=== PATIENT | male | born 1965 | race Hispanic/Latino ===

== ENCOUNTER 2018-06-26 20:35 | Emergency (ER) | payer SELFPAY ==
[~2018-06-26] VITALS: Ht 180.3 cm; Wt 123.8 kg
--- OUTSIDE RECORDS SUMMARY | 2018-06-26 20:38 | XMS REPORT | Continuity of Care Document ---
Author Author [facility] Interface Address Unknown Phone Unavailable Problems Problem Status Onset Date Classification Date Reported Comments Source ACUTE PANCREATITIS Active 06/13/2013 [facility] BLOOD IN URINE/PAIN Active 09/21/2011 [facility] Acute appendicitis Resolved Problem 06/18/2013 [facility] Carcinoma of thyroid Resolved Problem 06/18/2013 [facility] ADMINISTRTVE ENCOUNT NOS Active [facility] Medications Medication Details Route Status Patient Instructions Ordering Provider Order Date Source Fluzone 0.5 ml, Route: IM, Drug Form: SUSP, Daily, Start date: 06/15/13 9:00:00, Duration: 1 doses or times, Stop date: 06/15/13 9:00:00(Same as: Fluzone Quadrivalent) Inactive 06/15/2013 [facility] Diovan 160 mg, 1 tab, Route: PO, Drug form: TAB, Daily, Dosing Weight 114.602, kg, Start date: 06/14/13 9:00:00, Duration: 30 day, Stop date: 07/13/13 9:00:00Same as Diovan No Longer Active 06/14/2013 [facility] Influenza Virus Vaccine, Inactivated K-Dtmepwjc-67 (H3N2)-like virus ([id number] [facility] [place] strain / Influenza Virus Vaccine, Inactivated Z-Gmjlones-76, IVR-148 (H1N1) strain / Influenza Virus Vaccine, Inactivated, C-Zqxdkjc-[id number]-lik 0.5 ml, Route: IM, Drug Form: SUSP, Daily, Start date: 06/14/13 9:00:00, Duration: 1 doses or times, Stop date: 06/14/13 9:00:00(Same as: Fluzone Quadrivalent) No Longer Active 06/14/2013 [facility] pneumococcal capsular polysaccharide type 1 vaccine / pneumococcal capsular polysaccharide type 10A vaccine / pneumococcal capsular polysaccharide type 11A vaccine / pneumococcal capsular polysaccharide type 12F vaccine / pneumococcal capsular polysacchar 0.5 ml, Route: IM, Drug Form: INJ, Daily, Start date: 06/14/13 9:00:00, Duration: 1 doses or times, Stop date: 06/14/13 9:00:00(Same as: Pneumovax 23) Refrigerate Inactive 06/14/2013 [facility] Thyroxine 150 microgram, 1 tab, Route: PO, Drug form: TAB, Q630AM, Dosing Weight 114.602, kg, Start date: 06/14/13 6:30:00, Duration: 30 day, Stop date: 07/13/13 6:30:00Take 1 hour before or 2 hours after meal; E nteral feeds may interefere with the absorption of this medication. (Same as: Levothroid) No Longer Active 06/14/2013 [facility] levothyroxine 150 mcg (0.15 mg) oral tablet 150 microgram=1 tab, PO, Daily, # 30 tab, 0 Refill(s) Active 06/13/2013 [facility] Diovan 200 mg, PO, Daily, 0 Refill(s) Active 06/13/2013 [facility] NS 1,000 mL 1,000 mL, Rate: 125 ml/hr, Infuse over: 8 hr, Route: IV, Dosing Weight 114.602 kg, Total Volume: 1,000, Start date: 06/13/13 18:15:00, Duration: 30 day, Stop date: 07/13/13 18:14:00 No Longer Active 06/13/2013 [facility] Ondansetron 4 mg, 2 mL, Route: IVP, Drug form: INJ, Q4H, Dosing Weight 114.602, kg, PRN Nausea & Vomiting, Start date: 06/13/13 18:14:00, Duration: 30 day, Stop date: 07/13/13 18:13:00(Same as: Zofran) No Longer Active 06/13/2013 [facility] Acetaminophen 325 MG / Hydrocodone Bitartrate 5 MG Oral Tablet 1 tab, Route: PO, Drug Form: TAB, Dosing Weight 114.602, kg, Q4H, PRN Pain Score 1-3, Start date: 06/13/13 18:14:00, Duration: 30 day, Stop date: 07/13/13 18:13:00(Same as: [place] 325/5) Do not exceed 4gm/day of acetaminophen. No Longer Active 06/13/2013 [facility] Acetaminophen 650 mg, 2 tab, Route: PO, Drug form: TAB, Q4H, Dosing Weight 114.602, kg, PRN Pain 1-3/Temp > 100.4 F, Start date: 06/13/13 18:14:00, Duration: 30 day, Stop date: 07/13/13 18:13:00Do not exceed 4 gm/day. (Same as: Tylenol) No Longer Active 06/13/2013 [facility] acetaminophen-hydrocodone 325 mg-5 mg oral tablet 1 tab, PO, Q4H, PRN, 9 tab, for pain, Substitution Allowed, Maintenance, TAB PO Active [place] 09/21/2011 [facility] Flomax 0.4 mg oral capsule 0.4 mg, 1 cap, PO, Daily, 12 cap, Substitution Allowed, CAP PO Active [place] 09/21/2011 [facility] Zofran 4 mg, Route: IVP, Drug form: INJ, ONCE, Priority: STAT, Start date: 09/21/11 14:40:00, Stop date: 09/21/11 14:40:00 IVP No Longer Active [place] 09/21/2011 [facility] morphine Sulfate 4 mg, Route: IVP, ONCE, Priority: STAT, Start date: 09/21/11 14:39:00, Stop date: 09/21/11 14:39:00 IVP No Longer Active [place] 09/21/2011 [facility] Allergies, Adverse Reactions, Alerts Substance Category Reaction Severity Reaction type Status Date Reported Comments Source codeine Assertion Drug allergy Active [facility] penicillins Assertion Drug allergy Active [facility] Immunizations Immunization Date Given Site Status Last Updated Comments Source pneumococcal 23-valent vaccine 06/15/2013 Right deltoid completed [facility] influenza virus vaccine, inactivated 06/15/2013 Left deltoid completed Dayv [facility] Results Order Name Results Value Reference Range Date Interpretation Comments Source CHEM PANEL ASPARTATE TRANSAMINASE 11 unit/L 0 - 37 06/15/2013 [facility] CHEM PANEL B/C Ratio 16 6 - 25 06/15/2013 [facility] CHEM PANEL AGAP 13.9 meq/L 10.0 - 20.0 06/15/2013 [facility] CHEM PANEL BUN 16 mg/dL 7 - 22 06/15/2013 [facility] CHEM PANEL Sodium Lvl 143 meq/L 135 - 145 06/15/2013 [facility] CHEM PANEL Creatinine Lvl 1.0 mg/dL 0.5 - 1.4 06/15/2013 [facility] CHEM PANEL ALANINE AMINOTRANSFERASE 17 unit/L 0 - 65 06/15/2013 [facility] CHEM PANEL Albumin Lvl 3.0 g/dL 3.5 - 5.0 06/15/2013 [facility] CHEM PANEL Alk Phos 77 unit/L 39 - 136 06/15/2013 [facility] CHEM PANEL Glucose Lvl 89 mg/dL 70 - 99 06/15/2013 3Interpretive Data: Adult reference range values reflect the clinical guidelines of the [place] [employer]. [facility] CHEM PANEL A/G Ratio 1.2 0.7 - 1.6 06/15/2013 [facility] CHEM PANEL Globulin 2.4 g/dL 2.0 - 4.0 06/15/2013 [facility] CHEM PANEL Potassium Lvl 3.9 meq/L 3.5 - 5.1 06/15/2013 [facility] CHEM PANEL Chloride Lvl 108 meq/L 95 - 109 06/15/2013 [facility] CHEM PANEL Calcium Lvl 7.9 mg/dL 8.5 - 10.5 06/15/2013 [facility] CHEM PANEL CO2 25 meq/L 24 - 32 06/15/2013 [facility] CHEM PANEL Total Protein 5.4 g/dL 6.4 - 8.4 06/15/2013 [facility] CHEM PANEL Bili Total 0.2 mg/dL 0.2 - 1.3 06/15/2013 [facility] CHEM PANEL eGFR 89 mL/min/1.73m2 06/15/2013 1Result Comment: The eGFR is calculated using the CKD-EPI formula. In most young, healthy individuals the eGFR will be >90 mL/min/1.73m2. The eGFR declines with age. An eGFR of 60-89 may be normal in some populations, particularly the elderly, for whom the CKD-EPI formula has not been extensively validated. Use of the eGFR is not recommended in the following populations: Individuals with unstable creatinine concentrations, including patients and those with serious co-morbid conditions. Patients with extremes in muscle mass or diet. The data above are obtained from the National Kidney Disease Education Program (NKDEP) which additionally recommends that when the eGFR is used in patients with extremes of body mass index for purposes of drug dosing, the eGFR should be multiplied by the estimated BMI. [facility] HEMATOLOGY RDW 13.3 % 11.5 - 14.5 06/15/2013 [facility] HEMATOLOGY Platelet 197 K/CMM 133 - 450 06/15/2013 [facility] HEMATOLOGY MPV 8.5 fL 7.4 - 10.4 06/15/2013 [facility] HEMATOLOGY MCHC 34.9 g/dL 32.0 - 36.0 06/15/2013 [facility] HEMATOLOGY MCV 89.0 fL 80.0 - 94.0 06/15/2013 [facility] HEMATOLOGY Hct 37.8 % 42.0 - 54.0 06/15/2013 [facility] HEMATOLOGY Hgb 13.2 g/dL 14.0 - 18.0 06/15/2013 [facility] HEMATOLOGY MCH 31.1 pg 27.0 - 31.0 06/15/2013 [facility] HEMATOLOGY RBC X 10x6 4.25 M/CMM 4.70 - 6.10 06/15/2013 [facility] HEMATOLOGY WBC X 10x3 7.3 K/CMM 3.7 - 10.4 06/15/2013 [facility] IMMUNOLOGY [place] HIV 4th GEN Negative (06/15/2013 03:38:00 [place]) Negative 06/15/2013 [facility] IMMUNOLOGY [place]-Hep C Ab Negative *NA* (06/15/2013 03:38:00 [place]) Negative 06/15/2013 [facility] LIPIDS Trig 140 mg/dL <=149 mg/dL 06/15/2013 [facility] CHEM PANEL Lipase Lvl 420 unit/L 73 - 393 06/14/2013 [facility] CHEM PANEL Amylase Lvl 52 unit/L 25 - 115 06/14/2013 [facility] CHEM PANEL eGFR 89 mL/min/1.73m2 06/14/2013 2Result Comment: The eGFR is calculated using the CKD-EPI formula. In most young, healthy individuals the eGFR will be >90 mL/min/1.73m2. The eGFR declines with age. An eGFR of 60-89 may be normal in some populations, particularly the elderly, for whom the CKD-EPI formula has not been extensively validated. Use of the eGFR is not recommended in the following populations: Individuals with unstable creatinine concentrations, including patients and those with serious co-morbid conditions. Patients with extremes in muscle mass or diet. The data above are obtained from the National Kidney Disease Education Program (NKDEP) which additionally recommends that when the eGFR is used in patients with extremes of body mass index for purposes of drug dosing, the eGFR should be multiplied by the estimated BMI. [facility] CHEM PANEL Calcium Lvl 8.1 mg/dL 8.5 - 10.5 06/14/2013 [facility] CHEM PANEL CO2 25 meq/L 24 - 32 06/14/2013 [facility] CHEM PANEL ASPARTATE TRANSAMINASE 15 unit/L 0 - 37 06/14/2013 [facility] CHEM PANEL Total Protein 6.0 g/dL 6.4 - 8.4 06/14/2013 [facility] CHEM PANEL Bili Total 0.4 mg/dL 0.2 - 1.3 06/14/2013 [facility] CHEM PANEL Potassium Lvl 4.0 meq/L 3.5 - 5.1 06/14/2013 [facility] CHEM PANEL Chloride Lvl 107 meq/L 95 - 109 06/14/2013 [facility] CHEM PANEL Sodium Lvl 140 meq/L 135 - 145 06/14/2013 [facility] CHEM PANEL Creatinine Lvl 1.0 mg/dL 0.5 - 1.4 06/14/2013 [facility] CHEM PANEL BUN 18 mg/dL 7 - 22 06/14/2013 [facility] CHEM PANEL ALANINE AMINOTRANSFERASE 17 unit/L 0 - 65 06/14/2013 [facility] CHEM PANEL Albumin Lvl 3.4 g/dL 3.5 - 5.0 06/14/2013 [facility] CHEM PANEL Alk Phos 76 unit/L 39 - 136 06/14/2013 [facility] CHEM PANEL Glucose Lvl 104 mg/dL 70 - 99 06/14/2013 4Interpretive Data: Adult reference range values reflect the clinical guidelines of the [place] [employer]. [facility] CHEM PANEL A/G Ratio 1.3 0.7 - 1.6 06/14/2013 [facility] CHEM PANEL B/C Ratio 18 6 - 25 06/14/2013 [facility] CHEM PANEL AGAP 12.0 meq/L 10.0 - 20.0 06/14/2013 [facility] CHEM PANEL Globulin 2.6 g/dL 2.0 - 4.0 06/14/2013 [facility] HEMATOLOGY WBC X 10x3 9.7 K/CMM 3.7 - 10.4 06/14/2013 [facility] HEMATOLOGY MPV 8.4 fL 7.4 - 10.4 06/14/2013 [facility] HEMATOLOGY RDW 13.0 % 11.5 - 14.5 06/14/2013 [facility] HEMATOLOGY Platelet 216 K/CMM 133 - 450 06/14/2013 [facility] HEMATOLOGY MCV 88.8 fL 80.0 - 94.0 06/14/2013 [facility] HEMATOLOGY Hct 38.4 % 42.0 - 54.0 06/14/2013 [facility] HEMATOLOGY MCHC 34.5 g/dL 32.0 - 36.0 06/14/2013 [facility] HEMATOLOGY MCH 30.7 pg 27.0 - 31.0 06/14/2013 [facility] HEMATOLOGY RBC X 10x6 4.33 M/CMM 4.70 - 6.10 06/14/2013 [facility] HEMATOLOGY Hgb 13.3 g/dL 14.0 - 18.0 06/14/2013 [facility] HEMATOLOGY Lymphocytes 11.2 % 20.0 - 40.0 06/14/2013 [facility] HEMATOLOGY Basophils 0.2 % 0.0 - 1.0 06/14/2013 [facility] HEMATOLOGY Monocytes 4.5 % 2.0 - 12.0 06/14/2013 [facility] HEMATOLOGY Eosinophils 0.1 % 0.0 - 4.0 06/14/2013 [facility] HEMATOLOGY Segs 84.0 % 45.0 - 75.0 06/14/2013 [facility] HEMATOLOGY Lymphocytes # 1.1 K/CMM 1.0 - 5.5 06/14/2013 [facility] HEMATOLOGY Segs-Bands # 8.2 K/CMM 1.5 - 8.1 06/14/2013 [facility] HEMATOLOGY Monocytes # 0.4 K/CMM 0.0 - 0.8 06/14/2013 [facility] CHEMISTRY Lipase Lvl 203 U/L 73 - 393 09/21/2011 Normal [facility] CHEMISTRY Albumin Lvl 3.8 g/dL 3.5 - 5.0 09/21/2011 Normal [facility] CHEMISTRY Chloride Lvl 107 meq/L 95 - 109 09/21/2011 Normal [facility] CHEMISTRY Potassium Lvl 4.2 meq/L 3.5 - 5.1 09/21/2011 Normal [facility] CHEMISTRY BUN 17 mg/dL 7 - 22 09/21/2011 Normal [facility] CHEMISTRY Glucose Lvl 117 mg/dL 70 - 99 09/21/2011 [place] 1Interpretive Data: Adult reference range values reflect the clinical guidelinesof the [place] [employer]. [facility] CHEMISTRY Sodium Lvl 141 meq/L 135 - 145 09/21/2011 Normal [facility] CHEMISTRY Creatinine Lvl 1.4 mg/dL 0.5 - 1.4 09/21/2011 Normal [facility] CHEMISTRY CO2 25 meq/L 24 - 32 09/21/2011 Normal [facility] CHEMISTRY Calcium Lvl 9.0 mg/dL 8.5 - 10.5 09/21/2011 Normal [facility] CHEMISTRY Alk Phos 82 U/L 39 - 136 09/21/2011 Normal [facility] CHEMISTRY Bili Total 0.3 mg/dL 0.2 - 1.3 09/21/2011 Normal [facility] CHEMISTRY AST 15 U/L 0 - 37 09/21/2011 Normal [facility] CHEMISTRY Total Protein 7.3 g/dL 6.4 - 8.4 09/21/2011 Normal [facility] CHEMISTRY ALT 26 U/L 0 - 65 09/21/2011 Normal [facility] CHEMISTRY B/C Ratio 12 6 - 25 09/21/2011 Normal [facility] CHEMISTRY AGAP 13.2 meq/L 10.0 - 20.0 09/21/2011 Normal [facility] CHEMISTRY A/G Ratio 1.1 0.7 - 1.6 09/21/2011 Normal [facility] CHEMISTRY Globulin 3.5 g/dL 2.0 - 4.0 09/21/2011 Normal [facility] HEMATOLOGY MPV 8.0 fL 7.4 - 10.4 09/21/2011 Normal [facility] HEMATOLOGY Platelet 260 K/CMM 133 - 450 09/21/2011 Normal [facility] HEMATOLOGY Hgb 15.2 g/dL 14.0 - 18.0 09/21/2011 Normal [facility] HEMATOLOGY MCHC 34.4 g/dL 32.0 - 36.0 09/21/2011 Normal [facility] HEMATOLOGY Hct 44.2 % 42.0 - 54.0 09/21/2011 Normal [facility] HEMATOLOGY MCV 89.7 fL 80.0 - 94.0 09/21/2011 Normal [facility] HEMATOLOGY WBC 9.8 K/CMM 3.7 - 10.4 09/21/2011 Normal [facility] HEMATOLOGY RBC 4.93 M/CMM 4.70 - 6.10 09/21/2011 Normal [facility] HEMATOLOGY MCH 30.8 pg 27.0 - 31.0 09/21/2011 Normal [facility] HEMATOLOGY RDW 13.3 % 11.5 - 14.5 09/21/2011 Normal [facility] HEMATOLOGY Monocytes 6.4 % 2.0 - 12.0 09/21/2011 Normal [facility] HEMATOLOGY Eosinophils 1.1 % 0.0 - 4.0 09/21/2011 Normal [facility] Monocytes # 0.6 K/CMM 0.0 - 0.8 09/21/2011 Normal [facility] HEMATOLOGY Lymphocytes # 2.1 K/CMM 1.0 - 5.5 09/21/2011 Normal [facility] HEMATOLOGY Eosinophils # 0.1 K/CMM 0.0 - 0.5 09/21/2011 Normal [facility] HEMATOLOGY Segs-Bands # 6.9 K/CMM 1.5 - 8.1 09/21/2011 Normal [facility] HEMATOLOGY Basophils 0.5 % 0.0 - 1.0 09/21/2011 Normal [facility] Basophils # 0.0 K/CMM 0.0 - 0.2 09/21/2011 Normal [facility] HEMATOLOGY Lymphocytes 21.7 % 20.0 - 40.0 09/21/2011 Normal [facility] HEMATOLOGY Segs 70.3 % 45.0 - 75.0 09/21/2011 Normal [facility] URINALYSIS UA Color Ltyellow 09/21/2011 NA [facility] URINALYSIS UA Urobilinogen <=1.0 mg/dL
*NA*
(09/21/2011 14:15:00) <sup> </sup> 0.1 - 1.0 09/21/2011 NA [facility] URINALYSIS UA Blood Large *ABN* (09/21/2011 14:15:00) Negative 09/21/2011 ABN [facility] URINALYSIS UA Nitrite Negative (09/21/2011 14:15:00) Negative 09/21/2011 [facility] URINALYSIS UA Ketones Negative mg/dL *NA* (09/21/2011 14:15:00) Negative 09/21/2011 [facility] URINALYSIS UA Bili Negative *NA* (09/21/2011 14:15:00) Negative 09/21/2011 [facility] URINALYSIS UA Mucus Few /LPF *NA* (09/21/2011 14:15:00) None Seen 09/21/2011 NA [facility] URINALYSIS UA pH 5.0 5.0 - 8.0 09/21/2011 Normal [facility] URINALYSIS UA Protein 30 mg/dL *ABN* (09/21/2011 14:15:00) Negative 09/21/2011 ABN [facility] URINALYSIS UA Turbidity Marked *ABN* (09/21/2011 14:15:00) Clear 09/21/2011 ABN [facility] URINALYSIS UA Spec Grav 1.025 <=1.030 09/21/2011 Normal [facility] URINALYSIS UA Glucose Negative mg/dL *NA* (09/21/2011 14:15:00) Negative 09/21/2011 NA [facility] URINALYSIS UA WBC 2 /HPF 0 - 5 09/21/2011 Normal [facility] URINALYSIS UA RBC null 0 - 2 09/21/2011 [place] [facility] URINALYSIS UA Bacteria Occasional /HPF *NA* (09/21/2011 14:15:00) None Seen 09/21/2011 NA [facility] URINALYSIS UA Leuk Est Negative (09/21/2011 14:15:00) Negative 09/21/2011 Normal [facility] URINALYSIS UA Sq Epi Occasional /LPF *NA* (09/21/2011 14:15:00) Few 09/21/2011 NA [facility] Vital Signs Vital Sign Value Date Comments Source Systolic (mm Hg) 127 06/15/2013 [facility] Respitory Rate 18 06/15/2013 [facility] Diastolic (mm Hg) 68 06/15/2013 [facility] Temperature Oral (F) 98.2 F 06/15/2013 [facility] Heart Rate 66 06/15/2013 [facility] Temperature Oral (F) 98.5 F 06/15/2013 [facility] Heart Rate 58 06/15/2013 [facility] Respitory Rate 20 06/15/2013 [facility] Systolic (mm Hg) 119 06/15/2013 [facility] Diastolic (mm Hg) 62 06/15/2013 [facility] Systolic (mm Hg) 127 06/15/2013 [facility] Diastolic (mm Hg) 66 06/15/2013 [facility] Respitory Rate 20 06/15/2013 [facility] Temperature Oral (F) 98.5 F 06/15/2013 [facility] Heart Rate 68 06/15/2013 [facility] Weight 114.602 06/13/2013 [facility] BMI Calculated 35.24 06/13/2013 [facility] Height 180.34 cm 06/13/2013 [facility] Height 180.34 cm 09/21/2011 [facility] Weight 122.727 09/21/2011 [facility] Encounters Location Location Details Encounter Type Encounter Number Reason For Visit Attending Provider ADM Date DC Date Status Source [facility] Emergency [id number] MAURILIO RODRIGUEZ 09/21/2011 09/22/2011 Active [facility] Inpatient [id number] Yahir De Luna 06/13/2013 06/15/2013 [facility] Procedures Procedure Code Date Perfomer Comments Source Radiation therapy care [id number] [facility] Removal of thyroid adenoma [id number] [facility]
--- OUTSIDE RECORDS SUMMARY | 2018-06-26 20:38 | XMS REPORT | Summary of Care ---
Author Organization Unknown Address Unknown Phone Unavailable Encounter Dates Location Diagnoses Discharge Providers Disposition 06/13/2013 [facility] Mami P[place] [address] Mami Paniagua 06/15/[address] Yahir De Luna Reason for Visit ACUTE PANCREATITIS Vital Signs 1 2 3 Most recent to oldest [Reference Range]: 180.34 cm (06/13/2013 17:46:00 Niya/[facility]) Height 98.2 DegF (06/15/2013 08:27:00 [facility]) 98.5 DegF (06/15/2013 03:34:00 [facility]) 98.5 DegF (06/14/2013 20:59:00 [facility]) Temperature Oral [96.4-99.1 DegF] 127 mmHg (06/15/2013 08:27:00 [facility]) 119 mmHg (06/15/2013 03:34:00 [facility]) 127 mmHg (06/14/2013 20:59:00 [facility]) Systolic Blood Pressure [90-140 mmHg] 68 mmHg (06/15/2013 08:27:00 [facility]) 62 mmHg (06/15/2013 03:34:00 [facility]) 66 mmHg (06/14/2013 20:59:00 [facility]) Diastolic Blood Pressure [60-90 mmHg] 18 BRMIN (06/15/2013 08:27:00 [facility]ya/[facility]urt) 20 BRMIN (06/15/2013 03:34:00 Niya/[facility]urt) 20 BRMIN (06/14/2013 20:59:00 [facility]) Respiratory Rate [14-20 BRMIN] 66 bpm (06/15/2013 08:27:00 [facility]) 58 bpm *LOW* (06/15/2013 03:34:00 [facility]) 68 bpm (06/14/2013 20:59:00 [facility]) Peripheral Pulse Rate [60-100 bpm] 114.602 kg (06/13/2013 17:46:00 [facility]) Weight 35.24 m2 (06/13/2013 17:46:00 [facility]) Body Mass Index Problem List Condition Effective Dates Status Health Status Informant Acute Resolved appendicitis(Confirm ed) Carcinoma of Resolved thyroid(Confirmed) Allergies, Adverse Reactions, Alerts Status Substance Reaction Severity Active codeine Active penicillins Medications Medication Instructions Start Date Stop Date Status acetaminophen 650 mg, 2 tab, Route: PO, Drug 06/13/2013 06/15/2013 Discontinued form: TAB, Q4H, Dosing Weight 114.602, kg, PRN Pain 1-3/Temp > 100.4 F, Start date: 06/13/13 18:14:00, Duration: 30 day, Stop date: 07/13/13 18:13:00 Do not exceed 4 gm/day. (Same as: Tylenol) acetaminophen-hydroc 1 tab, Route: PO, Drug Form: TAB, 06/13/2013 06/15/2013 Discontinued odone 325 mg-5 mg Dosing Weight 114.602, kg, Q4H, PRN oral tablet Pain Score 1-3, Start date: 06/13/13 18:14:00, Duration: 30 day, Stop date: 07/13/13 18:13:00 (Same as: [place] 325/5) Do not exceed 4gm/day of acetaminophen. Diovan 160 mg, 1 tab, Route: PO, Drug 06/14/2013 06/15/2013 Discontinued form: TAB, Daily, Dosing Weight 114.602, kg, Start date: 06/14/13 9:00:00, Duration: 30 day, Stop date: 07/13/13 9:00:00 Same as Diovan Diovan 200 mg, PO, Daily, 0 Refill(s) 06/13/2013 Ordered Diovan 40 mg, 1 tab, Route: PO, Drug form: 06/14/2013 06/15/2013 Discontinued TAB, Daily, Start date: 06/14/13 9:00:00, Duration: 30 day, Stop date: 07/13/13 9:00:00 Same as Diovan Fluzone 0.5 ml, Route: IM, Drug Form: SUSP, 06/15/2013 06/15/2013 Completed Daily, Start date: 06/15/13 9:00:00, Duration: 1 doses or times, Stop date: 06/15/13 9:00:00 (Same as: Fluzone Quadrivalent) influenza virus 0.5 ml, Route: IM, Drug Form: SUSP, 06/14/2013 06/15/2013 Deleted vaccine, inactivated Daily, Start date: 06/14/13 9:00:00, Duration: 1 doses or times, Stop date: 06/14/13 9:00:00 (Same as: Fluzone Quadrivalent) levothyroxine 150 microgram, 1 tab, Route: PO, 06/14/2013 06/15/2013 Discontinued Drug form: TAB, Q630AM, Dosing Weight 114.602, kg, Start date: 06/14/13 6:30:00, Duration: 30 day, Stop date: 07/13/13 6:30:00 Take 1 hour before or 2 hours after meal; Enteral feeds may interefere with the absorption of this medication. (Same as: Levothroid) levothyroxine 150 150 microgram=1 tab, PO, Daily, # 06/13/2013 Ordered mcg (0.15 mg) oral 30 tab, 0 Refill(s) tablet NS 1,000 mL 1,000 mL, Rate: 125 ml/hr, Infuse 06/13/2013 06/15/2013 Discontinued over: 8 hr, Route: IV, Dosing Weight 114.602 kg, Total Volume: 1,000, Start date: 06/13/13 18:15:00, Duration: 30 day, Stop date: 07/13/13 18:14:00 ondansetron 4 mg, 2 mL, Route: IVP, Drug form: 06/13/2013 06/15/2013 Discontinued INJ, Q4H, Dosing Weight 114.602, kg, PRN Nausea & Vomiting, Start date: 06/13/13 18:14:00, Duration: 30 day, Stop date: 07/13/13 18:13:00 (Same as: Zofran) pneumococcal 0.5 ml, Route: IM, Drug Form: INJ, 06/14/2013 06/14/2013 Completed 23-valent vaccine Daily, Start date: 06/14/13 9:00:00, Duration: 1 doses or times, Stop date: 06/14/13 9:00:00 (Same as: Pneumovax 23) Refrigerate Results ELECTROLYTES Most recent to 1 2 oldest [Reference Range]: Sodium Lvl [135-145 143 mEq/L 140 mEq/L mEq/L] (06/15/2013 03:38:00 [facility]) (06/14/2013 04:41:00 [facility]) Potassium Lvl 3.9 mEq/L 4.0 mEq/L [3.5-5.1 mEq/L] (06/15/2013 03:38:00 [facility]/Burt) (06/14/2013 04:41:00 [facility]) Chloride Lvl [95-109 108 mEq/L 107 mEq/L mEq/L] (06/15/2013 03:38:00 [facility]) (06/14/2013 04:41:00 [facility]) CO2 [24-32 mEq/L] 25 mEq/L 25 mEq/L (06/15/2013 03:38:00 [facility]) (06/14/2013 04:41:00 [facility]) AGAP [10.0-20.0 13.9 mEq/L 12.0 mEq/L mEq/L] (06/15/2013 03:38:00 Niya/[facility]urt) (06/14/2013 04:41:00 [facility]) CHEM PANEL Most recent to 1 2 oldest [Reference Range]: Creatinine Lvl 1.0 mg/dL 1.0 mg/dL [0.5-1.4 mg/dL] (06/15/2013 03:38:00 [facility]ya/[facility]) (06/14/2013 04:41:00 [facility]) eGFR 89 mL/min/1.73m2 1 89 mL/min/1.73m2 2 *NA* *NA* (06/15/2013 03:38:00 [facility]) [facility] BUN [7-22 mg/dL] 16 mg/dL 18 mg/dL (06/15/2013 03:38:00 Niya/Burt) (06/14/2013 04:41:00 [facility]) B/C Ratio [6-25] 16 18 (06/15/2013 03:38:00 [facility]ya/Burt) (06/14/2013 04:41:00 [facility]) Glucose Lvl [70-99 89 mg/dL 3 104 mg/dL 4 mg/dL] (06/15/2013 03:38:00 [facility]) *HI* (06/14/2013 04:41:00 [facility]) Total Protein 5.4 g/dL 6.0 g/dL [6.4-8.4 g/dL] *LOW* *LOW* (06/15/2013 03:38:00 [facility]ya/[facility]urt) (06/14/2013 04:41:00 [facility]) Albumin Lvl [3.5-5.0 3.0 g/dL 3.4 g/dL g/dL] *LOW* *LOW* (06/15/2013 03:38:00 Niya/Burt) (06/14/2013 04:41:00 [facility]) Globulin [2.0-4.0 2.4 g/dL 2.6 g/dL g/dL] (06/15/2013 03:38:00 Niya/Burt) (06/14/2013 04:41:00 [facility]) A/G Ratio [0.7-1.6] 1.2 1.3 (06/15/2013 03:38:00 Niya/Burt) (06/14/2013 04:41:00 [facility]) Calcium Lvl 7.9 mg/dL 8.1 mg/dL [8.5-10.5 mg/dL] *LOW* *LOW* (06/15/2013 [facility]:38:[facility] (06/14/2013 04:41:00 [facility]) ALT [0-65 unit/L] 17 unit/L 17 unit/L (06/15/2013 03:38:00 [facility]urt) (06/14/2013 04:41:00 [facility]ya/[facility]) AST [0-37 unit/L] 11 unit/L 15 unit/L (06/15/2013 03:38:00 Niya/Burt) (06/14/2013 04:41:00 [facility]) Alk Phos [39-136 77 unit/L 76 unit/L unit/L] (06/15/2013 03:38:00 [facility]ya/Burt) (06/14/2013 [facility] Bili Total [0.2-1.3 0.2 mg/dL 0.4 mg/dL mg/dL] (06/15/2013 03:38:00 [facility]) (06/14/2013 04:41:00 [facility]) Amylase Lvl [25-115 52 unit/L unit/L] (06/14/2013 04:41:00 [facility]) Lipase Lvl [73-393 420 unit/L unit/L] *HI* (06/14/2013 04:41:00 [facility]) 1Result Comment: The eGFR is calculated using [...] from the National Kidney Disease Education Program ( NKDEP) which additionally recommends that when the eGFR is used in patients with extremes of body mass index for purposes of drug dosing, the eGFR should be mul tiplied by the estimated BMI. 2Result Comment: The eGFR is calculated using [...] from the National Kidney Disease Education Program ( NKDEP) which additionally recommends that when the eGFR is used in patients with extremes of body mass index for purposes of drug dosing, the eGFR should be mul tiplied by the estimated BMI. 3Interpretive Data: Adult reference range values reflect the clinical guidelines of the [place] [employer]. 4Interpretive Data: Adult reference range values reflect the clinical guidelines of the [place] [employer]. LIPIDS Most recent to 1 2 oldest [Reference Range]: Trig [<=149 mg/dL] 140 mg/dL (06/15/2013 03:38:00 [facility]) IMMUNOLOGY Most recent to 1 2 oldest [Reference Range]: [facility] HIV 4th GEN Negative [Negative] (06/15/2013 03:38:00 [facility]) [facility]-Hep C Ab Negative [Negative] *NA* (06/15/2013 03:38:00 [facility]) HEMATOLOGY Most recent to 1 2 oldest [Reference Range]: WBC [3.7-10.4 K/CMM] 7.3 K/CMM 9.7 K/CMM (06/15/2013 03:38:00 [facility]) (06/14/2013 04:41:00 [facility]) RBC [4.70-6.10 4.25 M/CMM 4.33 M/CMM M/CMM] *LOW* *LOW* (06/15/2013 03:38:00 [facility]) (06/14/2013 04:41:00 [facility]) Hgb [14.0-18.0 g/dL] 13.2 g/dL 13.3 g/dL *LOW* *LOW* (06/15/2013 03:38:00 [facility]urt) (06/14/2013 04:41:00 [facility]) Hct [42.0-54.0 %] 37.8 % 38.4 % *LOW* *LOW* (06/15/2013 03:38:00 [facility]) ([facility]/14/2013 [facility] MCV [80.0-94.0 fL] 89.0 fL 88.8 fL (06/15/2013 03:38:00 [facility]) (06/14/2013 04:41:00 [facility]) MCH [27.0-31.0 pg] 31.1 pg 30.7 pg *HI* (06/14/2013 04:41:00 Niya/Burt) (06/15/2013 03:38:00 [facility]) MCHC [32.0-36.0 34.9 g/dL 34.5 g/dL g/dL] (06/15/2013 03:38:00 Niya/Burt) (06/14/2013 04:41:00 [facility]) RDW [11.5-14.5 %] 13.3 % 13.0 % (06/15/2013 03:38:00 [facility]) (06/14/2013 04:41:00 [facility]) Platelet [133-450 197 K/CMM 216 K/CMM K/CMM] (06/15/2013 03:38:00 [facility]) ([facility]/14/2013 [facility] MPV [7.4-10.4 fL] 8.5 fL 8.4 fL (06/15/2013 03:38:00 [facility]) (06/14/2013 [facility]41[facility] Segs [45.0-75.0 %] 84.0 % *HI* (06/14/2013 04:41:00 [facility]) Lymphocytes 11.2 % [20.0-40.0 %] *LOW* (06/14/2013 [facility]:41[facility] Monocytes [2.0-12.0 4.5 % %] (06/14/2013 04:41:00 [facility]) Eosinophils [0.0-4.0 0.1 % %] (06/14/2013 04:41:00 [facility]) Basophils [0.0-1.0 0.2 % %] (06/14/2013 04:41:00 [facility]ya/[facility]) Segs-Bands # 8.2 K/CMM [1.5-8.1 K/CMM] *HI* (06/14/2013 [facility]:41[facility] Lymphocytes # 1.1 K/CMM [1.0-5.5 K/CMM] (06/14/2013 04:41:00 [facility]) Monocytes # [0.0-0.8 0.4 K/CMM K/CMM] (06/14/2013 04:41:00 [facility]) Medications Administered During Your Visit No data available for this section Immunizations Vaccine Date Refusal Reason influenza virus vaccine, inactivated 06/15/2013 pneumococcal 23-valent vaccine 06/15/2013 Procedures Procedure Type Body Site Date of Procedure Related Diagnosis Radiation therapy care Removal of thyroid adenoma Social History Social History Type Response Smoking Status Use: Never smoker. Previous treatment: None. Tobacco smoke exposure: None. Did the Patient Smoke Cigarettes Anytime During the Last 365 Days? No. Cessation Counseling Provided? No. Assessment and Plan Extracted from: Title: Progress Note * Author: Michael Prakash Date: 06/14/2013 Impression and Plan ---Acute pancreatitis,mild: CT abdomen/pelvis unremarkable per OSH;LFT normal;tolerating diet without any abdominal pain and lipase trended down;will advance diet and check trig ---Gastroenteritis, possible viral etiology:resolved --- Hypothyroid, history of thyroidectomy for cancer in remote past: on levothyroxine --- Hypertension, essential, benign: BP stable; on Diovan ---Obesity : encourage [employer] diet DVT proph: ambulation Disposition: once tolerates full diet;likely telma CARRERA is primary; please call [phone] with questions.
--- OUTSIDE RECORDS SUMMARY | 2018-06-26 20:38 | XMS REPORT | CCD ---
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 Name Role Phone Mike Gillis CP Allergies, Adverse Reactions, Alerts Substance Reaction Status codeine Active penicillins Active Medications Medication Instructions Start Date End Date Status Flomax 0.4 mg oral 0.4 mg, 1 cap, PO, Daily, 12 cap, 09/21/2011 Ordered capsule Substitution Allowed, CAP Zofran 4 mg, Route: IVP, Drug form: INJ, 09/21/2011 09/21/2011 Completed ONCE, Priority: STAT, Start date: 09/21/11 14:40:00, Stop date: 09/21/11 14:40:00 morphine Sulfate 4 mg, Route: IVP, ONCE, Priority: 09/21/2011 09/21/2011 Completed STAT, Start date: 09/21/11 14:39:00, Stop date: 09/21/11 14:39:00 acetaminophen-hydroc 1 tab, PO, Q4H, PRN, 9 tab, for 09/21/2011 Ordered odone 325 mg-5 mg pain, Substitution Allowed, oral tablet Maintenance, TAB Vital Signs Most recent to oldest [Reference Range]: 1 Height 180.34 cm (09/21/2011 14:09:00) Weight 122.727 kg (09/21/2011 14:09:00) Results URINALYSIS Most recent to oldest [Reference Range]: 1 UA Turbidity [Clear] Marked *ABN* (09/21/2011 14:15:00) UA Color Ltyellow *NA* (09/21/2011 14:15:00) UA pH [5.0-8.0] 5.0 (09/21/2011 14:15:00) UA Spec Grav [<=1.030] 1.025 (09/21/2011 14:15:00) UA Glucose [Negative mg/dL] Negative mg/dL *NA* (09/21/2011 14:15:00) UA Blood [Negative] Large *ABN* (09/21/2011 14:15:00) UA Ketones [Negative mg/dL] Negative mg/dL *NA* (09/21/2011 14:15:00) UA Protein [Negative mg/dL] 30 mg/dL *ABN* (09/21/2011 14:15:00) UA Urobilinogen [0.1-1.0 mg/dL] <=1.0 mg/dL *NA* (09/21/2011 14:15:00) UA Bili [Negative] Negative *NA* (09/21/2011 14:15:00) UA Leuk Est [Negative] Negative (09/21/2011 14:15:00) UA Nitrite [Negative] Negative (09/21/2011 14:15:00) UA WBC [0-5 /HPF] 2 /HPF (09/21/2011 14:15:00) UA RBC [0-2 /HPF] >182 /HPF *HI* (09/21/2011 14:15:00) UA Bacteria [None Seen /HPF] Occasional /HPF *NA* (09/21/2011 14:15:00) UA Sq Epi [Few /LPF] Occasional /LPF *NA* (09/21/2011 14:15:00) UA Mucus [None Seen /LPF] Few /LPF *NA* (09/21/2011 14:15:00) CHEMISTRY Most recent to oldest [Reference Range]: 1 Sodium Lvl [135-145 mEq/L] 141 mEq/L (09/21/2011 14:30:00) Potassium Lvl [3.5-5.1 mEq/L] 4.2 mEq/L (09/21/2011 14:30:00) Chloride Lvl [95-109 mEq/L] 107 mEq/L (09/21/2011 14:30:00) CO2 [24-32 mEq/L] 25 mEq/L (09/21/2011 14:30:00) AGAP [10.0-20.0 mEq/L] 13.2 mEq/L (09/21/2011 14:30:00) Creatinine Lvl [0.5-1.4 mg/dL] 1.4 mg/dL (09/21/2011 14:30:00) BUN [7-22 mg/dL] 17 mg/dL (09/21/2011 14:30:00) B/C Ratio [6-25] 12 (09/21/2011 14:30:00) Glucose Lvl [70-99 mg/dL] 117 mg/dL 1 *HI* (09/21/2011 14:30:00) Total Protein [6.4-8.4 g/dL] 7.3 g/dL (09/21/2011 14:30:00) Albumin Lvl [3.5-5.0 g/dL] 3.8 g/dL (09/21/2011 14:30:00) Globulin [2.0-4.0 g/dL] 3.5 g/dL (09/21/2011 14:30:00) A/G Ratio [0.7-1.6] 1.1 (09/21/2011 14:30:00) Calcium Lvl [8.5-10.5 mg/dL] 9.0 mg/dL (09/21/2011 14:30:00) ALT [0-65 U/L] 26 U/L (09/21/2011 14:30:00) AST [0-37 U/L] 15 U/L (09/21/2011 14:30:00) Alk Phos [39-136 U/L] 82 U/L (09/21/2011 14:30:00) Bili Total [0.2-1.3 mg/dL] 0.3 mg/dL (09/21/2011 14:30:00) Lipase Lvl [73-393 U/L] 203 U/L (09/21/2011 14:30:00) 1Interpretive Data: Adult reference range values reflect the clinical guidelinesof the [place] [employer]. HEMATOLOGY Most recent to oldest [Reference Range]: 1 WBC [3.7-10.4 K/CMM] 9.8 K/CMM (09/21/2011 14:30:00) RBC [4.70-6.10 M/CMM] 4.93 M/CMM (09/21/2011 14:30:00) Hgb [14.0-18.0 g/dL] 15.2 g/dL (09/21/2011 14:30:00) Hct [42.0-54.0 %] 44.2 % (09/21/2011 14:30:00) MCV [80.0-94.0 fL] 89.7 fL (09/21/2011 14:30:00) MCH [27.0-31.0 pg] 30.8 pg (09/21/2011 14:30:00) MCHC [32.0-36.0 g/dL] 34.4 g/dL (09/21/2011 14:30:00) RDW [11.5-14.5 %] 13.3 % (09/21/2011 14:30:00) Platelet [133-450 K/CMM] 260 K/CMM (09/21/2011 14:30:00) MPV [7.4-10.4 fL] 8.0 fL (09/21/2011 14:30:00) Segs [45.0-75.0 %] 70.3 % (09/21/2011 14:30:00) Lymphocytes [20.0-40.0 %] 21.7 % (09/21/2011 14:30:00) Monocytes [2.0-12.0 %] 6.4 % (09/21/2011 14:30:00) Eosinophils [0.0-4.0 %] 1.1 % (09/21/2011 14:30:00) Basophils [0.0-1.0 %] 0.5 % (09/21/2011 14:30:00) Segs-Bands # [1.5-8.1 K/CMM] 6.9 K/CMM (09/21/2011 14:30:00) Lymphocytes # [1.0-5.5 K/CMM] 2.1 K/CMM (09/21/2011 14:30:00) Monocytes # [0.0-0.8 K/CMM] 0.6 K/CMM (09/21/2011 14:30:00) Eosinophils # [0.0-0.5 K/CMM] 0.1 K/CMM (09/21/2011 14:30:00) Basophils # [0.0-0.2 K/CMM] 0.0 K/CMM (09/21/2011 14:30:00)
--- OUTSIDE RECORDS SUMMARY | 2018-06-26 20:39 | XMS REPORT ---
Author Author [facility] Address Unknown Phone Unavailable Care Team Providers Care Medical Services Manager Name Role Phone Unavailable Unavailable Problems This patient has no known problems. Allergies, Adverse Reactions, Alerts This patient has no known allergies or adverse reactions. Medications This patient has no known medications. Encounters Start Date/Time End Date/Time Encounter Type Admission Type Attending [facility] Care Department Encounter ID 2018-07-14 00:00:00 2018-07-14 00:00:[address] [facility] [id number] 2018-07-14 00:00:00 2018-07-14 00:00:[address] [facility] [id number] 2018-07-08 00:00:00 2018-07-08 00:00:[address] [facility] [id number] 2018-07-07 00:00:00 2018-07-07 00:00:[address] [facility] [id number] 2018-07-07 00:00:00 2018-07-07 00:00:[address] [facility] [id number] 2018-06-30 00:00:00 2018-06-30 00:00:[address] [facility] [id number] 2018-06-30 00:00:00 2018-06-30 00:00:[address] [facility] [id number] 2018-06-23 15:38:49 2018-06-23 15:38:[address] [facility] [id number] 2018-06-23 14:45:13 2018-06-23 14:45:[address] [facility] [id number] 2018-05-19 14:59:01 2018-05-19 14:59:[address] [facility] [id number] 2018-05-19 14:12:50 2018-05-19 14:12:[address] [facility] [id number] 2018-05-05 00:00:00 2018-05-05 00:00:[address] [facility] [id number] 2018-05-05 00:00:00 2018-05-05 00:00:[address] [facility] [id number] 2018-04-29 09:02:30 2018-04-29 09:02:[address] [facility] [id number] 2018-04-22 09:31:25 2018-04-22 09:31:[address] [facility] [id number] 2018-04-21 05:56:00 2018-04-21 05:56:00 Outpatient [facility] [id number] 2018-04-21 00:00:00 2018-04-21 00:00:[address] [facility] [id number] 2018-04-14 13:46:53 2018-04-14 13:46:[address] [facility] [id number] 2018-04-14 13:11:27 2018-04-14 13:11:[address] [facility] [id number] 2018-04-14 00:00:00 2018-04-14 00:00:[address] [facility] [id number] 2018-04-13 12:55:41 2018-04-13 12:55:[address] [facility] [id number] 2018-04-13 00:00:00 2018-04-13 00:00:[address] [facility] [id number] 2018-03-11 08:41:01 2018-03-11 08:41:[address] [facility] [id number] 2018-03-01 08:46:09 2018-03-01 08:46:[address] [facility] [id number] 2018-02-17 15:59:23 2018-02-17 15:59:[address] [facility] [id number] 2018-02-17 15:37:51 2018-02-17 15:37:[address] [facility] [id number] 2018-02-17 00:00:00 2018-02-17 00:00:[address] [facility] [id number] 2018-02-15 10:16:38 2018-02-15 10:16:[address] [facility] [id number] 2018-02-15 00:00:00 2018-02-15 00:00:[address] [facility] [id number] 2018-02-10 13:53:53 2018-02-10 13:53:[address] [facility] [id number] 2018-02-10 00:00:00 2018-02-10 00:00:[address] [facility] [id number] 2018-02-01 11:11:2018-02-01 11:11:[address] [facility] [id number] 2018-01-31 00:00:00 2018-01-31 00:00:[address] [facility] [id number] 2018-01-18 18:08:47 2018-01-18 18:08:[address] [facility] [id number] 2018-01-06 13:14:33 2018-01-06 13:14:[address] [facility] [id number] 2018-01-06 12:20:55 2018-01-06 12:20:55 Outpatient [facility] [id number] 2018-01-06 00:00:00 2018-01-06 00:00:[address] [facility] [id number] 2017-12-28 09:08:58 2017-12-28 09:08:[address] [facility] [id number] 2017-12-27 19:01:21 2017-12-27 19:01:[address] [facility] [id number] 2017-12-08 09:01:30 2017-12-08 09:01:[address] [facility] [id number] 2017-12-08 08:14:19 2017-12-08 08:14:[address] [facility] [id number] 2017-12-02 15:02:39 2017-12-02 15:02:[address] [facility] [id number] 2017-12-02 14:21:14 2017-12-02 14:21:[address] [facility] [id number] 2017-12-02 08:33:47 2017-12-02 08:33:[address] [facility] [id number] 2017-12-02 00:00:00 2017-12-02 00:00:[address] [facility] [id number] 2017-12-02 00:00:00 2017-12-02 00:00:[address] [facility] [id number] 2017-12-02 00:00:00 2017-12-02 00:00:[address] [facility] [id number] 2017-11-26 10:02:31 2017-11-26 10:02:[address] [facility] [id number] 2017-11-26 00:00:00 2017-11-26 00:00:[address] [facility] [id number] 2017-11-24 08:41:40 2017-11-24 08:41:[address] [facility] [id number] 2017-11-23 14:19:22 2017-11-23 14:19:[address] [facility] [id number] 2017-11-15 00:00:00 2017-11-15 00:00:[address] [facility] [id number] 2017-11-11 00:00:00 2017-11-11 00:00:[address] [facility] [id number] 2017-11-11 00:00:00 2017-11-11 00:00:[address] [facility] [id number] 2017-11-10 00:00:00 2017-11-10 00:00:[address] [facility] [id number] 2017-11-08 00:00:00 2017-11-08 00:00:[address] [facility] [id number] 2017-11-08 00:00:00 2017-11-08 00:00:[address] [facility] [id number] 2017-11-04 15:10:09 2017-11-04 15:10:[address] [facility] [id number] 2017-11-04 14:10:29 2017-11-04 14:10:[address] [facility] [id number] 2017-10-21 00:00:00 2017-10-21 00:00:[address] [facility] [id number] 2017-10-21 00:00:00 2017-10-21 00:00:[address] [facility] [id number] 2017-10-18 00:00:00 2017-10-18 00:00:[address] [facility] [id number] 2017-10-07 00:00:00 2017-10-07 00:00:[address] [facility] [id number] 2017-10-07 00:00:00 2017-10-07 00:00:[address] [facility] [id number] 2017-09-09 10:15:00 2017-09-09 10:15:[address] [facility] [id number] 2017-09-09 00:00:00 2017-09-09 00:00:[address] [facility] [id number] 2017-09-07 07:19:38 2017-09-07 07:19:[address] [facility] [id number] 2017-09-07 00:00:00 2017-09-07 00:00:[address] [facility] [id number] 2017-08-27 00:00:00 2017-08-27 00:00:[address] [facility] [id number] 2017-08-06 00:00:00 2017-08-06 00:00:[address] [facility] [id number] 2017-08-05 15:16:14 2017-08-05 15:16:[address] [facility] [id number] 2017-08-05 13:41:56 2017-08-05 13:41:[address] [facility] [id number] 2017-07-15 17:57:18 2017-07-15 17:57:[address] [facility] [id number] 2017-07-14 00:00:00 2017-07-14 00:00:[address] [facility] [id number] 2017-07-08 16:26:52 2017-07-08 16:26:[address] [facility] [id number] 2017-07-08 15:35:04 2017-07-08 15:35:[address] [facility] [id number] 2017-06-29 00:00:00 2017-06-29 00:00:[address] [facility] [id number] 2017-06-23 10:37:51 2017-06-23 10:37:[address] [facility] [id number] 2017-06-18 00:00:00 2017-06-18 00:00:[address] [facility] [id number] 2017-06-16 00:00:00 2017-06-16 00:00:[address] [facility] [id number] 2017-06-16 00:00:00 2017-06-16 00:00:[address] [facility] [id number] 2017-06-10 16:31:37 2017-06-10 16:31:[address] [facility] [id number] 2017-06-10 00:00:00 2017-06-10 00:00:[address] [facility] [id number] 2017-06-04 13:49:51 2017-06-04 13:49:[address] [facility] [id number] 2017-06-04 12:41:12 2017-06-04 12:41:[address] [facility] [id number] 00:00:00 2017 00:00:[address] [facility] [id number] 00:00:00 2017 00:00:[address] [facility] [id number] 2017-05-20 15:26:37 2017-05-20 15:26:[address] [facility] [id number] 2017-03-17 16:26:11 2017-03-17 16:26:[address] [facility] [id number] 2017-03-15 00:00:00 2017-03-15 00:00:[address] [facility] [id number] 2017-03-08 09:48:38 2017-03-08 09:48:[address] [facility] [id number] 2017-03-02 00:00:00 2017-03-02 00:00:[address] [facility] [id number] 2017-01-29 14:05:27 2017-01-29 14:05:[address] [facility] [id number] 2017-01-29 13:30:33 2017-01-29 13:30:[address] [facility] [id number] 2017-01-12 11:15:42 2017-01-12 11:15:[address] [facility] [id number] 2017-01-05 00:00:00 2017-01-05 00:00:[address] [facility] [id number] 2016-12-28 00:00:00 2016-12-28 00:00:[address] [facility] [id number] 2016-12-23 00:00:00 2016-12-23 00:00:[address] [facility] [id number] 2016-12-14 00:00:00 2016-12-14 00:00:[address] [facility] [id number] 2016-12-14 00:00:00 2016-12-14 00:00:[address] [facility] [id number] 2016-12-10 00:00:00 2016-12-10 00:00:[address] [facility] [id number] 2016-12-01 00:00:00 2016-12-01 00:00:[address] [facility] [id number] 2016-11-20 14:22:15 2016-11-20 14:22:[address] [facility] [id number] 2016-11-20 10:11:53 2016-11-20 10:11:[address] [facility] [id number] 2016-11-11 14:42:03 2016-11-11 14:42:[address] [facility] [id number] 2016-11-11 13:28:02 2016-11-11 13:28:[address] [facility] [id number] 2016-11-11 00:00:00 2016-11-11 00:00:[address] [facility] [id number] 2016-10-29 09:42:13 2016-10-29 09:42:[address] [facility] [id number] 2016-10-29 08:31:25 2016-10-29 08:31:[address] [facility] [id number] 2016-10-26 00:00:00 2016-10-26 00:00:[address] [facility] [id number] 2016-10-22 00:00:00 2016-10-22 00:00:[address] [facility] [id number] 2016-10-21 00:00:00 2016-10-21 00:00:[address] [facility] [id number] 2016-10-20 00:00:00 2016-10-20 00:00:[address] [facility] [id number] 2016-10-19 00:00:00 2016-10-19 00:00:[address] [facility] [id number] 2016-10-16 00:00:00 2016-10-16 00:00:[address] [facility] [id number] 2016-10-15 00:00:00 2016-10-15 00:00:[address] [facility] [id number] 2016-09-22 00:00:00 2016-09-22 00:00:[address] [facility] [id number] 2016-09-21 10:41:51 2016-09-21 10:41:[address] [facility] [id number] 2016-09-10 13:29:51 2016-09-10 13:29:[address] [facility] [id number] 2016-09-10 13:02:49 2016-09-10 13:02:[address] [facility] [id number] 2016-09-03 11:03:26 2016-09-03 11:03:[address] [facility] [id number] 2016-08-19 15:29:56 2016-08-19 15:29:[address] [facility] [id number]
[2018-06-26] MEDS ORDERED: LIDOCAINE HCL 1% LOCAL INJ 20 ML VIAL ONE (20:58)
[2018-06-26] MEDS ORDERED: TETANUS/DIPHTHERIA TOX ADULT 0.5 ML SYR IM ONE (21:00)
--- NOTE | 2018-06-26 21:14 | NUR ---
SUTURES X 7 TO 3RD DIGIT OF L HAND DONE BY BEATRIZ RUBIN AT BEDSIDE.
[2018-06-26 21:24] VITALS: BP 153/82
[2018-06-26] MEDS ORDERED: LIDOCAINE HCL 2% LOCAL 20 ML VIAL INJ ONE (21:30)
== END 2018-06-26 21:39 | disposition home or self-care (01) ==
LOC: ER 20:35
DX: S61.213A Laceration without foreign body of left middle finger without damage to nail, initial encounter (principal); W26.0XXA Contact with knife, initial encounter; Y92.008 Other place in unspecified non-institutional (private) residence as the place of occurrence of the external cause; I10 Essential (primary) hypertension; E07.9 Disorder of thyroid, unspecified
CPT/HCPCS: 12001; 90471; 90714; 99284; J2001

== ENCOUNTER 2022-07-16 21:51 | Emergency (ER) | payer OTHER ==
[~2022-07-16] VITALS: Ht 180.3 cm; Wt 123.8 kg
[2022-07-16 22:16] LABS: BASOPHILS # (AUTO) 0.1 (0.0-0.1); BASOPHILS % 0.8 % (0.0-1.0); EOSINOPHILS # (AUTO) 0.1 (0.0-0.4); EOSINOPHILS % 2.2 % (0.0-6.0); HEMATOCRIT 41.9 % (38.2-49.6); LYMPHOCYTES # (AUTO) 2.4 (1.0-3.2); LYMPHOCYTES % 37.7 % (18.0-39.1); MEAN CORPUSCULAR HEMOGLOBIN 30.2 pg (28-32); MEAN CORPUSCULAR HGB CONC 33.4 g/dL (31-35); MEAN CORPUSCULAR VOLUME 90.5 fL (81-99); MONOCYTES # (AUTO) 0.7 (0.2-0.8); MONOCYTES % 10.3 % (4.4-11.3); NEUTROPHILS # (AUTO) 3.1 (2.1-6.9); NEUTROPHILS % 48.5 % (38.7-80.0); PLATELET COUNT 199 x10e3/uL (140-360); RED BLOOD COUNT 4.63 x10e6/uL (4.3-5.7); RED CELL DISTRIBUTION WIDTH 12.6 % (11.7-14.4)
[2022-07-16 22:28] LABS: ALANINE AMINOTRANSFERASE 13 IU/L (0-55); ALBUMIN 3.3 g/dL (3.5-5.0); ALBUMIN/GLOBULIN RATIO 0.9 (0.8-2.0); ALKALINE PHOSPHATASE 82 IU/L (40-150); ANION GAP 12.8 mmol/L (8-16); BLOOD UREA NITROGEN 16 mg/dL (7-26); BUN/CREATININE RATIO 14 (6-25); CARBON DIOXIDE 24 mmol/L (22-29); CHLORIDE 108 mmol/L (98-107); CREATINE KINASE 191 IU/L (30-200); CREATININE, SERUM 1.11 mg/dL (0.72-1.25); GLUCOSE 187 mg/dL (74-118); POTASSIUM 3.8 mmol/L (3.5-5.1); SODIUM 141 mmol/L (136-145)
[2022-07-17 00:10] VITALS: BP 162/93
== END 2022-07-17 00:11 | disposition home or self-care (01) ==
LOC: ER 21:59
DX: R07.9 Chest pain, unspecified (principal); Z95.5 Presence of coronary angioplasty implant and graft; I10 Essential (primary) hypertension; E03.9 Hypothyroidism, unspecified; I25.10 Atherosclerotic heart disease of native coronary artery without angina pectoris; Z85.89 Personal history of malignant neoplasm of other organs and systems
CPT/HCPCS: 36415; 71045; 80053; 82550; 82553; 84484; 85025; 93005; 99284